=== PATIENT | male | born 1960 | race Caucasian/White ===

== ENCOUNTER 2017-01-13 23:21 | Emergency (ER) | payer BC ==
[2017-01-14] MEDS ORDERED: oxyCODONE/Acetamin 5/325 MG* TAB PO ONE ×2 (00:57→01:18)
[2017-01-14 01:54] VITALS: BP 144/72
--- NOTE | 2017-01-14 05:07 | ED ---
gonzález Gutierrez Timothy, scribed for Ishaan Brantley MD on 01/13/17 at 2350 . Lower Extremity - HPI Summary HPI Summary: Dav Kincaid is a 56 yo male presenting to [facility] with 3/10 right ankle pain S/P fall at 2230 tonight. Pt states he was using his snowblower when he fell and injured his right ankle via rolling. The pain is localized on the lateral aspect of the ankle. He states his pain is worse with weight bearing. He is unable to ambulate currently.He denies pain in his knee or hip, as well as previous injury and other Sx. He denies any past MHx. - History of Current Complaint Stated Complaint: FALL ANKLE PAIN Time Seen by Provider: 01/13/17 23:45 Hx Obtained From: Patient Mechanism Of Injury: Fall From A Standing Position Onset of Pain: Immediate Onset/Duration: Minutes Severity Initially: Moderate Severity Currently: Moderate Pain Intensity: 3 Pain Scale Used: 0-10 Numeric Timing: Constant Location: Is Discrete @ - right ankle Aggravating Factor(s): Standing, Ambulation, Weight Bearing Alleviating Factor(s): Rest Able to Bear Weight: No - Allergies/Home Medications Allergies/Adverse Reactions: Allergies Allergy/AdvReac Type Severity Reaction Status Date / Time No Known Allergies Allergy Verified 01/13/17 23:42 PMH/Surg Hx/FS Hx/Imm Hx Infectious Disease History: No Infectious Disease History: Denies: Traveled Outside the [place] in Last 30 Days - Family History Known Family History: Negative: Cardiac Disease, Hypertension, Diabetes - Social History Occupation: Employed Full-time - power equipment work Lives: With Family Hx Substance Use: No Substance Use Type: Reports: None Hx Tobacco Use: No Smoking Status (MU): Never Smoked Tobacco Review of Systems Constitutional: Negative Eyes: Negative ENT: Negative Cardiovascular: Negative Respiratory: Negative Gastrointestinal: Negative Genitourinary: Negative Musculoskeletal: Negative Skin: Negative Neurological: Negative Psychological: Normal All Other Systems Reviewed And Are Negative: Yes Physical Exam - Summary Physical Exam Summary: The patient is well-nourished in no acute distress and in no acute pain. The skin is warm and dry and skin color reflects adequate perfusion. HEENT: The head is normocephalic and atraumatic. The pupils are equal and reactive. The conjunctivae are clear and without drainage. Nares are patent and without drainage. Mouth reveals moist mucous membranes and the throat is without erythema and exudate. The external ears are intact. The ear canals are patent and without drainage. The tympanic membranes are intact. Neck is supple with full range of motion and non-tender. There are no carotid bruits. There is no neck vein distension. Respiratory: Chest is non-tender. Lungs are clear to auscultation and breath sounds are symmetrical and equal. Cardiovascular: Hear is regular rate and rhythm. There is no murmur or rub auscultated. There is no peripheral edema and pulses are symmetrical and equal. Abdomen: The abdomen is soft and non-tender. There are normal bowel sounds heard in all four quadrants and there is no organomegaly palpated. Musculoskeletal: There is no back pain noted. There is good capillary refill. There is no peripheral edema or calf tenderness elicited. His hips and knees are nontender bilaterally. There is no pain in the proximal fibula of the right leg. There is pain and swelling on the distal aspect of the fibula of the right leg. there appears to be a step off 4-5 cm above the ankle joint on the lateral malleolus. There is obvious swelling of the lateral and medial malleolus. There is tenderness with eversion of the ankle. No tenderness is noted on the calcaneus. Neurological: Patient is alert and oriented to person, place and time. The patient has symmetrical motor strength in all four extremities. Cranial nerves are grossly intact. Deep tendon reflexes are symmetrical and equal in all four extremities. Psychiatric: The patient has an appropriate affect and does not exhibit any anxiety or depression. Triage Information Reviewed: Yes Vital Signs On Initial Exam: Initial Vitals Temp Pulse Resp BP Pulse Ox 98.6 F 71 15 139/78 96 01/13/17 23:40 01/13/17 23:40 01/13/17 23:40 01/13/17 23:40 01/13/17 23:40 Vital Signs Reviewed: Yes Procedures - Procedure Summary Procedure Summary: Pt tolerated procedure well. Positive pulses and neurovascular sensation before and after splint application. - Splinting Location: Right lower extremity, posterior leg Hand-Made Type: orthoglass Splint: stirrup Pre-Proc Neuro Vasc Exam: normal Post-Proc Neuro Vasc Exam: normal Diagnostics - Vital Signs Vital Signs Temp Pulse Resp BP Pulse Ox 01/13/17 23:40 98.6 F 71 15 139/78 96 - Laboratory Lab Statement: Any lab studies that have been ordered have been reviewed, and results considered in the medical decision making process. - Radiology R ankle XR Xray Interpretation: Positive (See Comments) - spiral fracture of the distal right fibula, nondisplaced Radiology Interpretation Completed By: ED Physician Re-Evaluation - Re-Evaluation First Eval Re-Evaluation Time: 00:40 Change: Unchanged Comment: Pt was informed of results of imaging study, and is agreeable to current course of Tx. Lower Extremity Course/Dx - Course Assessment/Plan: Dav Kincaid is a 56 yo male presenting to [facility] with right ankle pain S/P a fall from standing posiiton earlier this evening. He prefers to only have his right ankle X-rayed, and not his right leg. After clinical examination and review of his positive ankle X-ray, he will be discharged home with nondisplaced spiral fracture of the distal right fibula and appropriate instructions. - Diagnoses Differential Diagnosis/HQI/PQRI: Positive: Dislocation, Fracture (Closed) Provider Diagnoses: Nondisplaced fracture of right fibula Discharge - Discharge Plan Condition: Stable Disposition: HOME Prescriptions: oxyCODONE/Acetamin 5/325 MG* [Percocet 5/325 TAB*] 1 tab PO Q6H PRN #30 tab MDD 4 PRN Reason: pain Patient Education Materials: Ankle Fracture (ED) Referrals: Chris Peña MD [Primary Care Provider] - Brittnee Price MD [Medical Doctor] - 2 Days Additional Instructions: Please follow up with the orthopedist provided regarding your visit to the emergency department tonight. Return to the emergency department with any new or recurring symptoms. The documentation as recorded by the gonzález perez Timothy accurately reflects the service I personally performed and the decisions made by me, Ishaan Brantley MD.
--- NOTE | 2017-01-14 07:43 | RAD ---
INDICATION: Right ankle injury COMPARISON: None TECHNIQUE: AP, lateral, and oblique views were obtained. FINDINGS: There are nondisplaced oblique distal metadiaphyseal fractures of the tibia and fibula. The ankle mortise is intact. There is diffuse soft tissue swelling. IMPRESSION: NONDISPLACED FIBULAR AND TIBIAL FRACTURES.
== END 2017-01-14 01:45 | disposition home or self-care (01) ==
LOC: ED 23:21
DX: S82.434A Nondisplaced oblique fracture of shaft of right fibula, initial encounter for closed fracture (principal); M25.571 Pain in right ankle and joints of right foot; W19.XXXA Unspecified fall, initial encounter; Y93.9 Activity, unspecified; Y92.9 Unspecified place or not applicable
CPT/HCPCS: 99283; A9270-GY

== ENCOUNTER → 2017-02-09 11:01 | Day surgery (SDC) | payer BC ==
[~2017-02-09 11:01] MED LIST: Buffered Lidocaine 1% SYRIN* 3 ML/SYR SYRINGE INTRADERM ONE; Bupivacaine 0.5% SDV PF* 30 ML VIAL ONE; Dexamethasone IV* 4 MG/ML 1 ML (4 MG) IV SLOW PU ONE; Dexamethasone IV* 4 MG/ML 1 ML (4 MG) ONE; Famotidine IV* 10 MG/ML 2 ML (20 mg) IV ONE; Famotidine IV* 10 MG/ML 2 ML (20 mg) ONE; KETAMINE HCL* 50 MG/ML 10 ML VIAL ONE; Ketorolac INJ* 30 MG/ML 1 ML VIAL ONE; Labetalol IV* 5 MG/ML 20 ML VIAL IV PUSH PRN; Labetalol IV* 5 MG/ML 20 ML VIAL ONE; Lidocaine 2% PF* 5 ML VIAL ONE; Midazolam* 1 MG/ML 5 ML VIAL (5 MG) ONE; Ondansetron INJ* 2 MG/ML VIAL ONE; PROCHLORPERAZINE INJ 5 MG/ML 2 ML VIAL IV PRN; Propofol* 10 MG/ML 20 ML BTL IV PUSH ONE; Succinylcholine* 20 MG/ML 10 ML VIAL ONE; ceFAZolin 2 GM PREMIX(*) 2 GM/50 ML BAG IVPB ONE; fentaNYL* 50 MCG/ML 2 ML VIAL (100 MCG VIAL) IV PRN; fentaNYL* 50 MCG/ML 5 ML VIAL (250 MCG VIAL) ONE; oxyCODONE/Acetamin 5/325 MG* TAB ONE; oxyCODONE/Acetamin 5/325 MG* TAB PO PRN
[2017-02-09 16:33] VITALS: BP 161/74
--- NOTE | 2017-02-10 12:52 | OP ---
DATE OF OPERATION: 02/09/17 [facility] DATE OF : 62 SURGEON: Sami Nunez MD VARNISHING UNIT TOOL SETTER: Lara Sawyer PA-C ANESTHESIOLOGIST: Maida Jesus MD ANESTHESIA: General PRE-OP DIAGNOSIS: Displaced right posterior malleolar and fibular fracture. POST-OP DIAGNOSIS: Displaced right posterior malleolar and fibular fracture. OPERATIVE PROCEDURE: Open reduction internal fixation, right fibula and posterior malleolus. DESCRIPTION OF PROCEDURE: Dav Kincaid was taken to the OR where a prone positioning was used. We opened up 10-cm longitudinal incision half way between the fibula and the Achilles. The sural nerve was protected in the dorsal flap. We incised that to the retinaculum, which was split longitudinally. We were then able to place a Plasencia elevator over the back of the tibia with a Kerns retractor to protect the neurovascular bundle. The tibia fracture itself was slightly mobile. There was only initial displacement of a couple of millimeters, so with firm digital pressure and manipulation of the ankle, we were able to push the fracture back down to its anatomic level. This was pinned temporarily and then a distal radius plate was bent to function more as a spring plate. I underbent the angle so that when the cortical screws were placed at and just above the fracture site, this helped to push through malleolar fracture distally and anteriorly. Similarly, the fibular fracture was approached through the same window by subluxing the peroneal's laterally. A small Washburn elevator was used to loosen the fracture, which was then digitally pushed down to a better position and held with a one-third tubular plate along its posterolateral aspect. X-rays intraoperatively showed satisfactory position of both fractures as well as the hardware. We irrigated thoroughly closing subcu with 2-0 Vicryl, ivan for the skin, and a compression dressing and plaster splint. [id number]/[facility] #: [id number] [facility]
--- NOTE | 2017-02-10 18:15 | RAD ---
CPT II Codes: 6045F INDICATION: Right ankle ORIF TECHNIQUE: Intraoperative fluoroscopy was provided during right ankle ORIF. FINDINGS: 15 spot films depict placement of plate and screw fixator spanning the distal right tibia and fibula.. Fluoroscopy time: 34 seconds IMPRESSION: As above.
== END | disposition home or self-care (01) ==
LOC: OR 11:01
PROVIDERS: ATTEND Orthopaedic Surgery
DX: S82.841A Displaced bimalleolar fracture of right lower leg, initial encounter for closed fracture (principal); K76.0 Fatty (change of) liver, not elsewhere classified; W19.XXXA Unspecified fall, initial encounter; Y92.9 Unspecified place or not applicable
CPT/HCPCS: 76000; A9270-GY; C1713; C1776; J0330; J0690; J1100; J1885; J2250; J2405; J2704; J3010

== ENCOUNTER → 2018-02-08 10:05 | Day surgery (SDC) | payer BC ==
[~2018-02-08 10:05] MED LIST changes: +Buffered Lidocaine 0.9% SYRIN* 5 ML/SYR SYRINGE INTRADERM ONE; -Buffered Lidocaine 1% SYRIN* 3 ML/SYR SYRINGE INTRADERM ONE; -Bupivacaine 0.5% SDV PF* 30 ML VIAL ONE; -KETAMINE HCL* 50 MG/ML 10 ML VIAL ONE; -Ketorolac INJ* 30 MG/ML 1 ML VIAL ONE; -Labetalol IV* 5 MG/ML 20 ML VIAL IV PUSH PRN; -Labetalol IV* 5 MG/ML 20 ML VIAL ONE; +Lidocaine 2% PF* 10 ML AMP ONE; -Lidocaine 2% PF* 5 ML VIAL ONE; +Midazolam* 1 MG/ML 2 ML VIAL (2 MG) ONE; -Midazolam* 1 MG/ML 5 ML VIAL (5 MG) ONE; +Naloxone* 0.4 MG/ML 1 ML VIAL IV PRN; -Ondansetron INJ* 2 MG/ML VIAL ONE; -PROCHLORPERAZINE INJ 5 MG/ML 2 ML VIAL IV PRN; -Succinylcholine* 20 MG/ML 10 ML VIAL ONE; +ceFAZolin 2 GM PREMIX (*) 2 GM/50 ML BAG IVPB ONE; -ceFAZolin 2 GM PREMIX(*) 2 GM/50 ML BAG IVPB ONE; -fentaNYL* 50 MCG/ML 2 ML VIAL (100 MCG VIAL) IV PRN; +fentaNYL* 50 MCG/ML 2 ML VIAL (100 MCG VIAL) ONE; -fentaNYL* 50 MCG/ML 5 ML VIAL (250 MCG VIAL) ONE; +oxyCODONE TAB* 5 MG TAB ONE; -oxyCODONE/Acetamin 5/325 MG* TAB ONE; -oxyCODONE/Acetamin 5/325 MG* TAB PO PRN
[2018-02-08 16:11] VITALS: BP 147/87
--- NOTE | 2018-02-09 06:27 | OP ---
DATE OF OPERATION: 02/08/18 - [facility] DATE OF : 62 ATTENDING SURGEON: Sami Nunez MD. PROCESS ENGINEERING INTERN: Lara Sawyer PA-C. PRE-OP DIAGNOSIS: Painful right fibular hardware. POST-OP DIAGNOSIS: Painful right fibular hardware. OPERATIVE PROCEDURE: Removal of right fibular plate. DESCRIPTION OF PROCEDURE: The patient was taken to the operating room where local anesthetic was infused around the fibula. We opened up the longitudinal incision which was posterolateral. We went behind the peroneals to isolate the one-third tubular plate. All 6 screws were removed routinely as well as the plate. We then irrigated thoroughly closing with Vicryl subcutaneous sutures, ivan for the skin, and a compression dressing applied. [id number]/[facility] #: [id number] [facility]
== END | disposition home or self-care (01) ==
LOC: OR 10:05
PROVIDERS: ATTEND Orthopaedic Surgery
DX: T84.84XA Pain due to internal orthopedic prosthetic devices, implants and grafts, initial encounter (principal); Y83.1 Surgical operation with implant of artificial internal device as the cause of abnormal reaction of the patient, or of later complication, without mention of misadventure at the time of the procedure; S82.841S Displaced bimalleolar fracture of right lower leg, sequela; X58.XXXS Exposure to other specified factors, sequela; N40.0 Benign prostatic hyperplasia without lower urinary tract symptoms
CPT/HCPCS: 88300; A9270-GY; J0690; J1100; J2001; J2250; J2704; J3010

== ENCOUNTER 2024-12-01 05:52 | Observation (INO) ==
[~2024-12-01 05:52] MED LIST changes: -Buffered Lidocaine 0.9% SYRIN* 5 ML/SYR SYRINGE INTRADERM ONE; -Dexamethasone IV* 4 MG/ML 1 ML (4 MG) IV SLOW PU ONE; -Dexamethasone IV* 4 MG/ML 1 ML (4 MG) ONE; -Famotidine IV* 10 MG/ML 2 ML (20 mg) IV ONE; -Famotidine IV* 10 MG/ML 2 ML (20 mg) ONE; -Lidocaine 2% PF* 10 ML AMP ONE; -Midazolam* 1 MG/ML 2 ML VIAL (2 MG) ONE; +Naloxone 0.4 mg VIAL 0.4 mg/ml 1 ml VIAL IV PRN; -Naloxone* 0.4 MG/ML 1 ML VIAL IV PRN; -Propofol* 10 MG/ML 20 ML BTL IV PUSH ONE; -ceFAZolin 2 GM PREMIX (*) 2 GM/50 ML BAG IVPB ONE; -fentaNYL* 50 MCG/ML 2 ML VIAL (100 MCG VIAL) ONE; -oxyCODONE TAB* 5 MG TAB ONE
[2024-12-01 06:50] LABS: Rapid COVID-19 Molecular Undetected (Undetected)
[2024-12-01] MEDS ORDERED: BELLADONNA/OPIUM Rectal SUPP 1 EACH SUPP PR ONE (07:04)
[2024-12-01] MEDS ORDERED: Ondansetron 4 mg VIAL 2 MG/ML 2 ml VIAL IV PRN (07:12)
[2024-12-01] MEDS ORDERED: fentaNYL 100 mcg/2 ml 50 MCG/ML VIAL ONE ×3 (07:31→10:11)
[2024-12-01] MEDS ORDERED: Lidocaine 2% PF 5 ML VIAL ONE (07:37)
[2024-12-01] MEDS ORDERED: Ondansetron 4 mg VIAL 2 MG/ML 2 ml VIAL ONE (07:51)
[2024-12-01] MEDS ORDERED: Dexamethasone IV 4 MG/ML VIAL 1 ml VIAL ONE (07:51)
[2024-12-01] MEDS ORDERED: Furosemide 20 mg/2 ml IV VIAL ONE (08:51)
[2024-12-01] MEDS: fentaNYL 100 mcg/2 ml 50 MCG/ML VIAL IV PRN (09:54)
[2024-12-01] MEDS: Buffered Lidocaine 1% SYRIN 1 ml INTRADERM ONE (09:55)
[2024-12-01] MEDS: Gentamicin ADULT 400 MG in NS 0.9% 100 ml BAG 100 ML IVPB ONE (11:22)
[2024-12-01] MEDS: Ampicillin ADVAN 2 GM in NS 0.9% 100 ML 100 ML IVPB ONE (11:22)
[2024-12-01] MEDS: Lactated Ringers 1000 ml BAG 1,000 ML IV SCH (11:22)
[2024-12-01] MEDS: Magnesium Hydroxide LIQ 30 ML UDC PO SCH (11:23)
[2024-12-01] MEDS: Neomycin/Polym/Bacit TOP OINT 15 GM TOPICAL SCH (11:23)
[2024-12-01] MEDS: NS 0.9% 1000 ml BAG 1,000 ML IV SCH (11:23)
[2024-12-02 05:23] VITALS: BP 147/79
== END 2024-12-02 09:40 | disposition home or self-care (01) ==
LOC: SSU 05:52 → OR 05:52
PROVIDERS: ADMIT Urology; ATTEND Urology